=== PATIENT | female | born 1980 | race Caucasian/White ===

== ENCOUNTER 2017-02-19 10:03 | Emergency (ER) | payer MEDICAID ==
[2017-02-19 10:04] VITALS: BMI 54.6
[2017-02-19 10:15] VITALS: BP 150/94; PULSE 94; RESP 16; TEMP 98.6; O2SAT 100
[2017-02-19 10:37] LABS: BASO # 0.01 K/mm3 (0.0-2.0); BASO % 0.2 % (0.0-3.0); EOS # 0.1 (0.0-0.7); EOS % 1.6 % (1.5-5.0); GRAN # 3.07 (1.4-6.5); GRAN % 61.9 % (50.0-68.0); HEMATOCRIT 39.8 % (36.0-48.0); LYMPH # 1.4 (1.2-3.4); LYMPH % 27.8 % (22.0-35.0); MEAN CELL VOLUME 82.6 fl (80.0-105.0); MEAN CORPUSCULAR HEMOGLOBIN 27.4 pg (25.0-35.0); MEAN CORPUSCULAR HGB CONC 33.2 g/dl (31.0-37.0); MEAN PLATELET VOLUME 10.5 fl (7.0-11.0); MONO # 0.4 (0.1-0.6); MONO % 8.5 % (1.0-6.0); RED CELL DISTRIBUTION WIDTH 12.7 % (11.5-14.5)
[2017-02-19 10:41] LABS: URINE BILIRUBIN NEGATIVE (NEGATIVE); URINE BLOOD NEGATIVE (NEGATIVE); URINE GLUCOSE (UA) NEGATIVE (NEGATIVE); URINE KETONE >=80 mg/dL (NEGATIVE); URINE LEUKOCYTE ESTERASE MODERATE Leu/uL (NEGATIVE); URINE PROTEIN TRACE mg/dL (<30 mg/dL); URINE UROBILINOGEN 0.2 E.U./dL (<1 E.U./dL)
[2017-02-19 10:43] LABS: URINE APPEARANCE CLEAR (CLEAR); URINE COLOR YELLOW (YELLOW)
[2017-02-19 10:46] LABS: URINE EPITHELIAL CELLS MANY /hpf (0-5); URINE RBC NEGATIVE /hpf (0-2); URINE WBC 15 - 20 /hpf (0-6)
[2017-02-19 10:47] LABS: URINE BACTERIA FEW (NEG)
[2017-02-19 10:56] LABS: ALB/GLOB RATIO 1.4 (1.1-1.8); ALKALINE PHOSPHATASE 70 U/L (38-126); ALT/SGPT 23 U/L (7-56); AST/SGOT 27 U/L (14-36); BILIRUBIN,TOTAL 1.2 mg/dL (0.2-1.3); BLOOD UREA NITROGEN 15 mg/dL (7-21); CALCIUM 9.1 mg/dL (8.4-10.5); CARBON DIOXIDE 24 mmol/L (21-33); CHLORIDE 105 mmol/L (98-107); GFR AFRICAN-AMERICAN > 60; GLUCOSE,RANDOM 85 mg/dL (70-110); POTASSIUM 3.2 mmol/L (3.6-5.0); SODIUM 141 mmol/L (132-148); TOTAL PROTEIN 7.4 g/dL (5.8-8.3)
[2017-02-19] MEDS ORDERED: Potassium Chloride 20 mEq ER Tab PO STA (11:54)
--- NOTE | 2017-02-19 12:01 | ED PDOC ---
Arrival/HPI - General Chief Complaint: Psychiatric Evaluation Time Seen by Provider: 02/19/17 10:21 Historian: Patient - History of Present Illness Narrative History of Present Illness (Text): 02/19/17 12:35 37yr old female presents brought in by police and ambulance after cutting her left wrist. Patient states that she was mad at her because she found pornography on his computer and made a small cut on the volar aspect of her left wrist. Patient states immunizations are up-to-date. She denies headache dizziness or weakness. Patient states she depressed but she denies suicidal or homicidal ideations. Patient states she only did that out of anger and states she did not want to kill herself. Time/Duration: Prior to Arrival Symptom Onset: Sudden Past Medical History - Provider Review Nursing Documentation Reviewed: Yes - Travel History Have you recently traveled outside [place] w/in the past 3 mons?: No - Infectious Disease Hx of Infectious Diseases: None - Tetanus Immunization Tetanus Immunization: Up to Date (2 years ago; per patient) - Reproductive Currently : No - Cardiac Hx Cardiac Disorders: No Hx Hypertension: No - Pulmonary Hx Tuberculosis: No - Neurological HX Cerebrovascular Accident: No Hx Seizures: No - Hematological/Oncological Hx Cancer: No - Genitourinary/Gynecological Hx Sexually Transmitted Diseases: No - Psychiatric Hx Depression: No Hx Emotional Abuse: No Hx Physical Abuse: No Hx Substance Use: No - Anesthesia Hx Anesthesia: No - Suicidal Assessment Feels Threatened In Home Enviroment: No Family/Social History - Physician Review Nursing Documentation Reviewed: Yes Family/Social History: Unknown Family HX Smoking Status: Never Smoked Hx Alcohol Use: No Hx Substance Use: No Hx Substance Use Treatment: No Allergies/Home Meds Allergies/Adverse Reactions: Allergies No Known Allergies Allergy (Verified 02/19/17 10:12) Home Medications: Home Meds Medication Instructions Recorded Confirmed Cholecalciferol [Vitamin D 1000 IU] 1 tab PO DAILY 02/19/17 02/19/17 Ferrous Sulfate [High Potency Iron] 1 tab PO DAILY 02/19/17 02/19/17 Review of Systems - Review of Systems Constitutional: absent: Fatigue, Fevers Respiratory: absent: SOB, Cough Cardiovascular: absent: Chest Pain, Palpitations Gastrointestinal: absent: Abdominal Pain, Nausea, Vomiting Genitourinary Female: absent: Dysuria, Frequency Musculoskeletal: absent: Arthralgias, Back Pain, Neck Pain Skin: Other (abrasion to left wrist) Neurological: absent: Headache, Dizziness Psychiatric: Depression. absent: Anxiety, Suicidal Ideation Physical Exam Vital Signs Reviewed: Yes Vital Signs Temp Pulse Resp BP Pulse Ox 02/19/17 10:15 98.6 F 94 H 16 150/94 H 100 Temperature: Afebrile Blood Pressure: Hypertensive Pulse: Regular Respiratory Rate: Normal Appearance: Positive for: Well-Appearing, Non-Toxic, Comfortable Pain Distress: None Mental Status: Positive for: Alert and Oriented X 3 - Systems Exam Head: Present: Atraumatic Mouth: Present: Moist Mucous Membranes Neck: Present: Normal Range of Motion Respiratory/Chest: Present: Clear to Auscultation, Good Air Exchange. No: Respiratory Distress, Accessory Muscle Use Cardiovascular: Present: Regular Rate and Rhythm, Normal S1, S2. No: Murmurs Abdomen: No: Tenderness, Distention, Rebound, Guarding Back: Present: Normal Inspection Upper Extremity: Present: Normal ROM, NORMAL PULSES, Neurovascularly Intact, Capillary Refill < 2s, Other (superficial abrasion to volar aspect of left wrist ; no edema, no erythema; no active bleeding; full rom of wrist; non tender; sensation and distal pulses intact. cap refill <2. ). No: Tenderness, Swelling , Erythema, Deformity Lower Extremity: Present: Normal ROM Neurological: Present: GCS=15, Speech Normal Skin: Present: Warm, Dry Psychiatric: Present: Alert, Oriented x 3 Medical Decision Making ED Course and Treatment: 02/19/17 11:58 Patient is nontoxic well-appearing in no distress vital signs are stable. pt with abrasion to left wrist; cleaned, irrigated, bacitracin and dressing applied. tetanus is up to date. CBC WNL CMP k; 3.2 Tylenol WNL Salicylate WNL Alcohol level WNL Urine drug screen wnl UA; + leukocytes + wbc 15-20 cxr: wnl Potassium 40meq given by mouth pt is medically cleared for PES evaluation Patient was seen and evaluated by PES screener: nancy Patient psychiatrically cleared for discharge will d/c home with Keflex for UTI I advised follow-up with a primary care physician within the next 2 days. Advised taking antibiotics for UTI as prescribed. Advised follow-up with a psychiatrist within the next 2 days. Advised me to return if symptoms worsen persist or if new concerning symptoms develop Patient verbalizes understanding of discharge instructions and need for immediate followup. all aspects of this case were discussed the attending of record. Impression; depression, UTI Follow-up with a primary care physician Take Keflex 4 times daily 7 days Increase fluids Follow-up with the psychiatrist within the next 2 days Return immediately if symptoms worsen or persist or if new concerning symptoms develop - Lab Interpretations Lab Results: 02/19/17 10:25 02/19/17 10:25 Lab Results 02/19/17 10:34: Urine Opiates Screen Negative, Urine Methadone Screen Negative, Ur Barbiturates Screen Negative, Ur Phencyclidine Scrn Negative, Ur Amphetamines Screen Negative, U Benzodiazepines Scrn Negative, U Oth Cocaine Metabols Negative, U Cannabinoids Screen Negative 02/19/17 10:34: Urine Color Yellow, Urine Appearance Clear, Urine pH 6.0, Ur Specific Wiley 1.025, Urine Protein Trace H, Urine Glucose (UA) Negative, Urine Ketones >=80, Urine Blood Negative, Urine Nitrate Negative, Urine Bilirubin Negative, Urine Urobilinogen 0.2, Ur Leukocyte Esterase Moderate H, Urine RBC Negative, Urine WBC 15 - 20, Ur Epithelial Cells Many, Urine Bacteria Few 02/19/17 10:25: Alcohol, Quantitative < 10 02/19/17 10:25: Salicylates < 1 L, Acetaminophen < 10.0 L 02/19/17 10:25: Sodium 141, Potassium 3.2 L, Chloride 105, Carbon Dioxide 24, Anion Gap 16, BUN 15, Creatinine 0.6 L, Est GFR ( Amer) > 60, Est GFR ( Non-Af Amer) > 60, Random Glucose 85, Calcium 9.1, Total Bilirubin 1.2, AST 27, ALT 23, Alkaline Phosphatase 70, Total Protein 7.4, Albumin 4.3, Globulin 3.1, Albumin/Globulin Ratio 1.4 02/19/17 10:25: WBC 5.0 D, RBC 4.82, Hgb 13.2, Hct 39.8, MCV 82.6, MCH 27.4, MCHC 33.2, RDW 12.7, Plt Count 238, MPV 10.5, Gran % 61.9, Lymph % (Auto) 27.8, Elliott % (Auto) 8.5 H, Eos % (Auto) 1.6, Baso % (Auto) 0.2, Gran # 3.07, Lymph # 1.4, Elliott # 0.4, Eos # 0.1, Baso # 0.01 - Medication Orders Current Medication Orders: Discontinued Medications Potassium Chloride (K-Dur 20 Meq Er Tab) 40 meq PO STAT STA Stop: 02/19/17 11:55 Last Admin: 02/19/17 11:59 Dose: 40 meq Disposition/Present on Arrival - Present on Arrival Any Indicators Present on Arrival: No History of DVT/PE: No History of Uncontrolled Diabetes: No Urinary Catheter: No History of Decub. Ulcer: No History Surgical Site Infection Following: None - Disposition Have Diagnosis and Disposition been Completed?: Yes Diagnosis: Depression, Urinary tract infection Disposition: HOME/ ROUTINE Disposition Time: 11:56 Patient Plan: Discharge Condition: GOOD Discharge Instructions (ExitCare): Urinary Tract Infection in Women (ED) Additional Instructions: Follow-up with a primary care physician Take Keflex 4 times daily 7 days Increase fluids Follow-up with the psychiatrist within the next 2 days Return immediately if symptoms worsen or persist or if new concerning symptoms develop Prescriptions: Cephalexin [Keflex] 500 mg PO QID #28 capsule Referrals: Petra Romo MD [Primary Care Provider] - Follow up with primary [facility] [Outside] - Follow up with primary Forms: [employer] (Arabic)
== END 2017-02-19 12:03 | disposition home or self-care (01) ==
LOC: ED 10:03
DX: N39.0 Urinary tract infection, site not specified (principal); F32.9 Major depressive disorder, single episode, unspecified